=== PATIENT | male | born 1965 | race Caucasian/White ===

== ENCOUNTER 2020-03-14 06:57 | Day surgery (SDC) | payer OTHER ==
[~2020-03-14] VITALS: Ht 177.8 cm; Wt 87.1 kg
[~2020-03-14 06:57] MED LIST: APAP650 PO; BUDESONIDE-FO10.2 G1 INH; IBUPROFEN200 MG PO; IPRAT-ALBUT 0.5-3 ML; LEVALBUTEROL TA15 GM INH; PROAIR HFA8.5 GM INH; XOPENEX0.63 MG/3 INH
[2020-03-14 08:17] VITALS: BP 139/86
[2020-03-14 08:18] LABS: HEMATOCRIT 39.4 % (42.0-52.0); HEMOGLOBIN 13.9 gm/dL (14.0-18.0); MCH 30.2 pg (26.0-34.0); MCHC 35.3 g/dL (28.0-37.0); MCV 85.6 fL (80.0-100.0); RBC 4.6 mil/uL (4.50-6.00); RDW 13.8 % (10.5-14.5)
[2020-03-14 08:25] LABS: CALCIUM 8.6 mg/dL (8.5-10.1); CREATININE 1.1 mg/dL (0.7-1.3); POTASSIUM 3.9 mmol/L (3.5-5.1)
[2020-03-14 08:31] LABS: TOTAL BILIRUBIN 0.6 mg/dL (<0.1-1.0); TOTAL PROTEIN 7.1 g/dL (6.4-8.2)
[2020-03-14] MEDS ORDERED: OXYCODONE HCL 55 MG PO (10:30)
[2020-03-14] MEDS ORDERED: KEFLEX500 M1 PO (10:30)
[2020-03-14] MEDS ORDERED: ACETAMINOPHEN325 M1 PO (10:30)
[2020-03-14] MEDS ORDERED: COLACE 100 MG100 MG PO (10:30)
[2020-03-14] MEDS ORDERED: IBUPROFEN 200200 M1 PO (10:30)
[2020-03-14] MEDS ORDERED: MIRALAX17 GM PO (10:30)
[2020-03-14 10:45] VITALS: BP 139/86
--- NOTE | 2020-03-18 18:07 | PATH ---
[facility] [address] [place] [address] PATHOLOGY RPT PROCEDURE Name: CUCA ANDRADE Room #: DEP [facility] M.R.#: [id number] Admission: 03/14/20 Date of : 65 Discharge: 03/14/20 Report #: [id number] Path Case #: [id number] [facility] Accession Number: [id number] . 01 Material submitted: . gallbladder - GALLBLADDER . 01 Clinical history: . Cholelithiasis . 02 Diagnosis: Gallbladder, cholecystectomy: - Mild chronic cholecystitis. - Cholelithiasis. (IUV:pit 03/18/2020) QTP 03/18/2020 1501 Local . 02 Electronically signed: . Helga Cho MD, Pathologist NPI- [id number] . 01 Gross description: . The specimen is received in formalin, labeled "Brandee, Cuca, gallbladder" and consists of a previously punctured pink-hargrove gallbladder measuring 5.8 x 2.8 x 1.1 cm. The margin is inked. It contains thick brown bile and multiple spiculated black calculi measuring 3.1 x 1.8 x 0.7 cm in aggregate. The mucosa is green and granular with a wall thickness of 0.1 cm. No gross lesions are identified. Represent sections are submitted in A1. ([place]; 03/14/2020) JFQ/JFQ 03/14/2020 1849 Local . 02 Pathologist provided ICD-10: K80.10 . 02 CPT . 852486 Specimen Comment: A courtesy copy of this report has been sent to [phone] Specimen Comment: [id number] Specimen Comment: Report sent to / DR MARTIN Performed at: 01 [place] [id number] [id number] MD Suhail Mayorga MD Phone: [phone] Performed at: 02 [facility] [address] [place] [address] PATHOLOGY RPT PROCEDURE Name: CUCA ANDRADE Room #: DEP [facility]..#: [id number] Admission: 03/14/20 Date of : 65 Discharge: 03/14/20 Report #: [id number] Path Case #: [id number] [address] [place] [id number] MD Helga Cho MD Phone: [phone]
== END 2020-03-14 12:15 | disposition home or self-care (01) ==
LOC: OR 06:57 → TBA 07:01 → OR 10:31
PROVIDERS: Surgery
DX: K80.10 Calculus of gallbladder with chronic cholecystitis without obstruction (principal); K43.2 Incisional hernia without obstruction or gangrene; K66.0 Peritoneal adhesions (postprocedural) (postinfection); J45.909 Unspecified asthma, uncomplicated; Z98.890 Other specified postprocedural states; Z79.899 Other long term (current) drug therapy; Z11.59 Encounter for screening for other viral diseases; Z87.442 Personal history of urinary calculi; Z96.642 Presence of left artificial hip joint; Z88.8 Allergy status to other drugs, medicaments and biological substances
CPT/HCPCS: 50010; 50101; 50249; 50411; 50555; 50558; 50900; 51489; 51687; 52265; 52266; 52287; 53307; 53310; 53312; 54022; 54118; 55245; 56462; 56525; 56526; 62110; 62900; 70005

== ENCOUNTER → 2020-09-12 | Outpatient (CLI) | payer OTHER ==
[~2020-09-12] MED LIST changes: +ACETAMINOPHEN325 M1 PO; +COLACE 100 MG100 MG PO; +IBUPROFEN 200200 M1 PO; +KEFLEX500 M1 PO; +MIRALAX17 GM PO; +OXYCODONE HCL 55 MG PO
== END ==
LOC: LAB 14:23
PROVIDERS: ATTEND Surgery
DX: Z01.812 Encounter for preprocedural laboratory examination (principal); Z20.828 Contact with and (suspected) exposure to other viral communicable diseases

== ENCOUNTER 2020-09-17 07:38 | Inpatient (IN) | payer OTHER ==
[~2020-09-17] VITALS: Ht 177.8 cm; Wt 85.7 kg
[2020-09-17] VITALS (8 sets, daily range): BP systolic 110–138; BP diastolic 66–97
[2020-09-17 08:14] LABS: HEMATOCRIT 43.5 % (42.0-52.0); HEMOGLOBIN 14.8 gm/dL (14.0-18.0); MCH 29.3 pg (26.0-34.0); MCV 86.2 fL (80.0-100.0); RBC 5.05 mil/uL (4.50-6.00); RDW 13.5 % (10.5-14.5); WBC 7.7 thou/uL (4.0-11.0)
[2020-09-17 08:29] LABS: CALCIUM 9.2 mg/dL (8.5-10.1); CREATININE 1.3 mg/dL (0.7-1.3); POTASSIUM 4.2 mmol/L (3.5-5.1)
--- NOTE | 2020-09-17 10:09 | EKG ---
[facility] [place] [address] ELECTROCARDIOGRAM REPORT Name: CUCA ANDRADE Room #: [address] [place] [address] M.R.#: [id number] Admission: 09/17/20 Attend Phys: Hung Herrera MD Discharge: Date of : 65 Report #: [id number] THIS REPORT FOR: cc: Patrice Bojorquez MD, [place] S. MD Lammoglia, Francisco J. MD ~ THIS REPORT FOR: //name// [facility] Test Date: 2020-09-17 Test Time: 08:13:55 Pat Name: CUCA ANDRADE Department: Room: 150 Gender: M Supervisor Component Assembler: SHAYNA : 1965 Requested By: Hung Herrera Order Number: [id number] MD: Erik Luo Measurements Intervals [place] Rate: 86 P: 55 ME: 147 QRS: 11 QRSD: 93 T: 31 QT: 351 QTc: 420 Interpretive Statements Sinus rhythm Borderline low voltage, extremity leads Early transition Compared to ECG 10/01/2001 13:43:27 No significant changes Electronically Signed On 09-17-2020 10:08:53 INFORMATION SYSTEMS MANAGER by Erik Luo [email or web address] <ELECTRONICALLY SIGNED> By: Erik Luo MD 09/17/20 1008 2 2 Erik Luo MD /EPI
[2020-09-17] MEDS ORDERED: OXYCODONE HCL 55 MG PO (18:41)
[2020-09-17] MEDS ORDERED: TYLENOL325 MG PO (18:42)
[2020-09-17] MEDS ORDERED: COLACE 100 MG100 MG PO (18:43)
[2020-09-17] MEDS ORDERED: MIRALAX17 GM PO (18:44)
--- NOTE | 2020-09-17 18:45 | NUR ---
PATIENT ADMITTED FROM OR WITH HERNIA REPAIR WITH LYSIS OF ADHESIONS, PATOENT HAS MIDLINE INCISION WITH DERMABOND PLUS PRINEO DRESSING, LOOKS C/D/I. PATIENT HAS EPIDURAL CATH, PATIENT HAS NIKHIL DRAIN TO ABDOMEN AREA. PATIENT HAS EPIDURAL YEAST PUSHER PUMP. PATIENT RESTING COMFORTABLY. FRIEND AT BEDSIDE. ADMISSION COMPLETED, REPORT GIVEN TO KIANNA.
--- NOTE | 2020-09-18 02:08 | NUR ---
PT HAS BEEN RESTING COMFORTABLY RATING PAIN AT A ZERO. ABDOMINAAL INCISIONAL SITE WITHOUT ANY DRAINAGE OR SIGNS OF INFECTION. MIRANDA IN PLACE WITH DARK YELLOW U/O. PT WAS GIVEN IV ZOFRAN X 1 AT THE START OF SHIFT AND HE HAS BEEN OKAY SINCE. EPIDIURAL IN PLACE-WILL D/C AT [address]AFEBRILE. TOLERATING SOME CLR LIQUIDS. IVF INFUSING. WILL CONTINUE WITH POC TILL EOS.
[2020-09-18 04:13] VITALS: BP 113/64
[2020-09-18 05:58] LABS: HEMATOCRIT 36.3 % (42.0-52.0); MCH 29.5 pg (26.0-34.0); MCHC 34.1 g/dL (28.0-37.0); MCV 86.5 fL (80.0-100.0); RBC 4.19 mil/uL (4.50-6.00); RDW 13.2 % (10.5-14.5); WBC 9.3 thou/uL (4.0-11.0)
[2020-09-18 06:06] LABS: ALBUMIN 3.3 g/dL (3.4-5.0); CALCIUM 8.1 mg/dL (8.5-10.1); CREATININE 1.3 mg/dL (0.7-1.3); PHOSPHORUS 3.6 mg/dL (2.5-4.9); POTASSIUM 3.8 mmol/L (3.5-5.1)
[2020-09-18 06:14] LABS: HEMOGLOBIN 12.4 gm/dL (14.0-18.0)
[2020-09-18 08:12] VITALS: BP 117/75
[2020-09-18 16:49] VITALS: BP 135/87
--- NOTE | 2020-09-18 19:33 | NUR ---
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 MED FROM PHARMACY. INFUSION RATE = 6ML /HR.
[2020-09-18 21:00] VITALS: BP 118/72
[2020-09-19 04:20] VITALS: BP 117/75
--- NOTE | 2020-09-19 06:00 | NUR ---
PT STARTED OFF THE SHIFT C/O NAUSEA NOT RELIEVED BY ZOFRAN. PT ALSO C/O SOA. ORDERS RECD FOR A DIFFERENT ANTIEMETIC WELL NEBULIZER TREATMENTS. PT REPORTED RELIEF. APNEA MONITOR IN PLACE, PT SATTING ABOVE 93%. I/S PROVIDED PT ENCOURAGED TO USE. PT IS AFEBRILE.CONTINUES ON EPIDURAL MEDICATION, REPORTING PAIN AT A ZERO. THIS MORNING PT WAS ABLE TO STAND BY EDGE OF BED-NO DIZZINESS. NIKHIL WITH ONLY 30CC THRO NOC.ABDOMINAL INCISION LOOKS GOOD.MIRANDA WITH ADEQUATE U/O.
[2020-09-19 08:53] VITALS: BP 143/91
[2020-09-19 12:41] LABS: HEMOGLOBIN 12.3 gm/dL (14.0-18.0); MCH 29.6 pg (26.0-34.0); MCHC 34.2 g/dL (28.0-37.0); MCV 86.3 fL (80.0-100.0); RBC 4.17 mil/uL (4.50-6.00); RDW 13.2 % (10.5-14.5); WBC 7.2 thou/uL (4.0-11.0)
[2020-09-19 12:55] LABS: CALCIUM 8.2 mg/dL (8.5-10.1); CREATININE 1.2 mg/dL (0.7-1.3); POTASSIUM 3.8 mmol/L (3.5-5.1)
--- NOTE | 2020-09-19 13:19 | NUR ---
PT CARE ASSUMED AT 0700. A&Ox4. PT COMPLAINING OF EXTREME NAUSEA WITH MOVEMENT AND NAUSEA BEING ELEVATED WHEN GIVEN IV ZOFRAN. DR. SWAIN INFORMED. SCOLPAMINE PATCH APPLIED TO THE BACK OF L. EAR. PHENERGEN SUPPOSITORY GIVEN. NAUSEA RESOLVED. IV PATENT WITH NO REDNESS OR EDEMA, FLUIDS INFUSING. NIKHIL DRAIN IN PLACE INCISION DRY AND INTACT. MIRANDA IN PLACE. EPIDURAL PUMP IN PLACE AND INFUSING. NO EXTRA PAIN MEDICATION REQUESTED. PRN BREATHING TREATMENT REQUESTED. ON 3L O2. FALL PROTOCOL IN PLACE. CALL LIGHT IN REACH. WILL CONTINUE TO MONITOR.
--- NOTE | 2020-09-19 13:43 | NUR ---
Pt admitted and underwent exploratory laparotomy, Lysis of adhesions for greater than 1 hour, repair of incisional ventral hernia using polypropylene mesh, retrorectus repair. Care team indicated that pt was still needing o2, had just worked with pt today, still had reese in place, and still using epidural meds. Pt was changed to inpatient. It is anticpated that pt will progrees to be able to dc home once medically stable. Should pt need home health contact [facility] at fax orders to .
[2020-09-19 15:42] VITALS: BP 133/80
[2020-09-19 19:56] VITALS: BP 123/65
[2020-09-19 20:02] VITALS: BP 101/59
--- NOTE | 2020-09-19 23:50 | NUR ---
1900 ASSUMED CARE OF PT AFTER BEDSIDE REPORT, BASELINE ASSESSMENT COMPLETED, PT WITH NO COMPLAINTS OF PAIN AT THIS TIME, SCD'S IN PLACE, FALL PRECAUTIONS IN PLACE, MIRANDA CATHETER DRAINING AND PATENT, WILL CONTINUE TO MONITOR
[2020-09-20 03:05] LABS: HEMATOCRIT 34.4 % (42.0-52.0); HEMOGLOBIN 11.6 gm/dL (14.0-18.0); MCH 29.3 pg (26.0-34.0); MCHC 33.8 g/dL (28.0-37.0); MCV 86.6 fL (80.0-100.0); RBC 3.97 mil/uL (4.50-6.00); RDW 13.2 % (10.5-14.5); WBC 6.2 thou/uL (4.0-11.0)
[2020-09-20 03:16] LABS: ALBUMIN 2.9 g/dL (3.4-5.0); CALCIUM 8.2 mg/dL (8.5-10.1); PHOSPHORUS 3.7 mg/dL (2.5-4.9); POTASSIUM 3.9 mmol/L (3.5-5.1)
[2020-09-20 03:24] VITALS: BP 101/69
[2020-09-20 07:30] VITALS: BP 131/85
[2020-09-20 15:45] VITALS: BP 114/79
--- NOTE | 2020-09-20 15:46 | NUR ---
Assumed care of pt. at 0700. Pt. is calm and cooperative. Pt. does not complain of any pain. Fall precautions in place.
[2020-09-20 19:45] VITALS: BP 127/79
--- NOTE | 2020-09-21 02:02 | NUR ---
1900 assumed care of pt after bedside report. 2029 baseline assessment completed. Pt resting in bed, epidural dressing c/d/i, with epidural analgesia infusing as ordered, denies pain at this time. incision site c/d/i, serosanguinous drainage in dann drain minimal amount. pt ambulates to bathroom with stand by assist only, states bm at 1900 and passing flatus. fall precautions and scd's in place, will continue to monitor.
[2020-09-21 06:55] VITALS: BP 120/76
--- NOTE | 2020-09-21 14:22 | NUR ---
Assumed care of pt at 0700. Pt a&ox4. Epidural infusing. Pain toleratable. Epidural rate decreased fomr 6ml/hr to 3ml/hr per doctor order. IV fluids discountinued. CO2 monitor in place. Turner catheter in place. Pt ambulated in the hallway SBA. NIKHIL drain in place. Dressing c/d/i. Fall precautions in place. Will continue to monitor.
[2020-09-21 15:50] VITALS: BP 118/71
[2020-09-21 19:12] VITALS: BP 122/83
[2020-09-22 04:35] VITALS: BP 111/76
[2020-09-22 05:22] LABS: HEMATOCRIT 36.9 % (42.0-52.0); HEMOGLOBIN 12.7 gm/dL (14.0-18.0); MCH 29.7 pg (26.0-34.0); MCHC 34.3 g/dL (28.0-37.0); MCV 86.5 fL (80.0-100.0); RBC 4.26 mil/uL (4.50-6.00); RDW 13.4 % (10.5-14.5); WBC 6.5 thou/uL (4.0-11.0)
[2020-09-22 05:37] LABS: ALBUMIN 3.2 g/dL (3.4-5.0); CALCIUM 8.9 mg/dL (8.5-10.1); CREATININE 1.2 mg/dL (0.7-1.3); PHOSPHORUS 4.8 mg/dL (2.5-4.9); POTASSIUM 4.2 mmol/L (3.5-5.1)
[2020-09-22 08:06] VITALS: BP 96/61
--- NOTE | 2020-09-22 08:28 | NUR ---
PT LYING IN BED. EPIDURAL OPERATIONS ADMINISTRATIVE ASSISTANT PROVIDING PAIN RELIEF. DENIES NAUSEA. RESTING COMFORTABLY. NO NEEDS VOICED. CALL LIGHT WITHIN REACH. FREQUENT OBSERVATION.
--- NOTE | 2020-09-22 12:07 | NUR ---
ASSUMED PT CARE THIS AM. PT VSS, A&OX4. NIKHIL DRAIN WORKING, DRAINING SEROSANGINOUS FLUID. MIRANDA CATHETER IN PLACE, DRAINING WELL. MIDLINE ABDOMINAL INCISION C/D/I. PT GIVEN MEDS THIS AM WITHOUT COMPLAINT. PT WAS ON OXYGEN, RT JUST TURNED OFF OXYGEN STATING THAT PT WAS SATTING WELL WITHOUT OXYGEN. EPIDURAL PUMP INFUSING AT 3.CAPNOGRAPHY BEING USED. PT HAS A GOOD APPETITE., FLUIDS ENCOURAGED. IV PATENT. PT GOAL IS TO BE ABLE TO WEAN OFF OF THE EPIDURAL SOON IN ORDER TO GO HOME.
--- NOTE | 2020-09-22 13:26 | NUR ---
ASSESSMENT: CM REVIEWED CHART AND SPOKE WITH PT. PT IS ALERT AND ORIENTED X4. PT IS S/P HERNIA REPAIR. PT WAS ON EPIDERAL PUMP AND CONTIUING TO MONITOR PAIN. PT REPORTS HE LIVES IN A HOUSE WITH HIS MOTHER WHO HE STATES HE TAKES CARE OF. PT REPORTS HE IS FULLY INDEPENDENT WITH ADLS AND AMBULATION BUT REPORTS HE HAS ALSO OF EQUIPMENT AT HOME FROM PAST KNEE SURGERY. PT REPORTS HAVING A CANE AND WALKER AT HOME IF NEEDED. PT REPORTS HE ALSO HAS A STAIR GLIDE IN THE HOME. PT REPORTS THAT HE HAS NOT HAD HH IN THE PAST OR BEEN TO A SNF. CM DISCUSSED ROLE. PT DOES NOT ANTICIPATE HAVING ANY NEEDS FROM CM PRIOR TO DISCHARGE. CM WILL CONTINUE TO FOLLOW TO ASSIST NEEDED.
[2020-09-22 16:00] VITALS: BP 114/77
[2020-09-22 19:17] VITALS: BP 119/84
--- NOTE | 2020-09-23 04:00 | NUR ---
PT IS PLEASNT AND COOPERATIVE. EPIDURAL DC/D @ABOUT 100 HRS. PT WAS ABLE TO MANAGE HIS PAIN WITH IV FENTANYL. PT DID NOT WANT THE NORCO BECAUSE HE SAYS IT MAKES HIM NAUSEATED. THIS AM , PT GIVEN THE ORAL PAIN MEDS WITH SOME ZOFRAN.VOIDING OKAY PER BATHROOM.
[2020-09-23 08:17] VITALS: BP 109/75
[2020-09-23] MEDS ORDERED: HYDROCODON-ACE1 EAC7 PO (09:52)
[2020-09-23] MEDS ORDERED: NEURONTIN 300M300 M2 PO (09:52)
[2020-09-23] MEDS ORDERED: ZOFRAN ODT4 MG PO (09:52)
[2020-09-23] MEDS ORDERED: NORCO 10-325 T1 EACH PO (10:35)
[2020-09-23] MEDS ORDERED: PHENERGAN 25 MG25 M1 PO (10:35)
[2020-09-23 10:38] VITALS: BP 109/75
[2020-09-23 10:40] VITALS: BP 109/75
--- NOTE | 2020-09-23 12:49 | NUR ---
Assumed care of pt at 0700. Pt a&ox4. Epidural catheter removed by anesthesiologist. J.P. drain removed by surgeon. Pain controlled with prn pain meds. Incision well approximated. Covid test ordered due to exposure. SBA to the toilet. Possible discharge to home tonight. Call light within reach. Will continue to monitor.
[2020-09-23 16:00] VITALS: BP 109/74
== END 2020-09-23 18:32 | disposition home or self-care (01) | DRG 337 ==
LOC: TBA 07:38 → OR 07:38 → TBA 07:40 → OR 10:07 → 4S 16:18 → OR 17:32 → 4S 09-19 10:00
PROVIDERS: Surgery; ADMIT Surgery; ATTEND Surgery
DX: K43.9 Ventral hernia without obstruction or gangrene (principal); J45.909 Unspecified asthma, uncomplicated; Z20.828 Contact with and (suspected) exposure to other viral communicable diseases; Z96.642 Presence of left artificial hip joint; K08.409 Partial loss of teeth, unspecified cause, unspecified class; Z90.89 Acquired absence of other organs; Z79.891 Long term (current) use of opiate analgesic; Z87.442 Personal history of urinary calculi; Z79.899 Other long term (current) drug therapy; Z88.5 Allergy status to narcotic agent
CPT/HCPCS: 10102; 50010; 50101; 50331; 50386; 50455; 55075; 56455; 56524; 56525; 56526; 56528; 56529; 57092; 57108; 62110; 62900; 70005